=== PATIENT | female | born 2000 | race African-American/Black ===

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

== ENCOUNTER 2018-05-26 15:50 | Emergency (ER) | payer OTHER ==
[~2018-05-26] VITALS: Ht 167.6 cm; Wt 124.4 kg
[2018-05-26 16:19] LABS: SOURCE URINE
[2018-05-26 17:07] VITALS: BP 136/87
[2018-05-27 12:57] LABS: CHLAMYDIA TRACHOMATIS POSITIVE; NEISSERIA GONORRHOEAE NEGATIVE
== END 2018-05-26 17:07 | disposition home or self-care (01) ==
LOC: EME 15:50
PROVIDERS: Nurse Practitioner Family
DX: L02.31 Cutaneous abscess of buttock (principal); Z20.2 Contact with and (suspected) exposure to infections with a predominantly sexual mode of transmission; R50.9 Fever, unspecified
CPT/HCPCS: 87491; 87591; 99281; 99284; J0696